=== PATIENT | female | born 1990 | race Caucasian/White ===

== ENCOUNTER → 2017-05-27 | Outpatient (CLI) | payer OTHER | END | disposition home or self-care (01) | LOC: C.LAB 18:24 | DX: Z02.83 Encounter for blood-alcohol and blood-drug test (principal) ==

== ENCOUNTER 2022-07-27 05:03 | Inpatient (IN) ==
[2022-07-27] MEDS ORDERED: OXYTOCIN 30 UNITS/500 ML BAG IV PRN ×3 (05:25→16:11)
[2022-07-27] MEDS ORDERED: LIDOCAINE 1% LOCAL 20 ML VIAL INFIL PRN (05:25)
[2022-07-27] MEDS: LACTATED RINGER'S 1,000 ML IV PRN ×3 (05:55→14:50)
[2022-07-27 05:57] LABS: Hematocrit (blood only) 35.3 % (34.1-44.9); Hemoglobin 12.2 g/dl (12.0-16.0); Mean Corpuscular Hemoglobin 30.9 pg (25.0-34.0); Mean Corpuscular Hgb Conc 34.6 g/dL (32.0-36.0); Mean Corpuscular Volume 89.4 fL (80.0-100.0); Mean Platelet Volume 12.9 fL (9.4-12.3); Platelet Count 181 K/uL (130-400); RDW Coefficient of Variation 13.2 % (11.5-14.5); RDW Standard Deviation 43.4 fL (36.4-46.3); Red Blood Count 3.95 M/uL (3.93-5.22); White Blood Count 11.17 K/ul (4.8-10.8)
[2022-07-27] MEDS ORDERED: ONDANSETRON INJ 2 MG/ML 2 ML VIAL ONE (06:06)
[2022-07-27] MEDS ORDERED: ePHEDrine sulfate 50 MG/ML AMP ONE (06:21)
[2022-07-27] MEDS ORDERED: BUPIVACAINE 0.25% 30 ML VIAL ONE ×2 (06:22→12:32)
[2022-07-27] MEDS ORDERED: fentaNYL citrate 100 MCG/2 ML VIAL ONE ×2 (06:22→12:32)
[2022-07-27] MEDS ORDERED: LIDOCAINE 2%/EPINEPHRINE 1:200,000 20 ML SDV ONE (06:22)
[2022-07-27] MEDS ORDERED: SODIUM CHLORIDE 0.9% INJ 10 ML VIAL ONE (06:22)
[2022-07-27] MEDS ORDERED: fentaNYL 2MCG/ML ROPIVACAINE 1.25MG/ML 100 ML BAG EPI ONE (06:23)
[2022-07-27] MEDS ORDERED: ePHEDrine sulfate 50 MG/ML AMP IV PRN (06:42)
[2022-07-27] MEDS ORDERED: diphenhydrAMINE 50 MG/ML VIAL IV PRN (06:42)
[2022-07-27] MEDS ORDERED: NALBUPHINE HCL INJ 10 MG/ML AMP IV PRN (06:42)
[2022-07-27] MEDS ORDERED: NALOXONE HCL 0.4 MG/1 ML VIAL/CARP IV PRN (06:42)
[2022-07-27] MEDS ORDERED: NALOXONE HCL 1 MG in SODIUM CHLORIDE 0.9% 1000ML 1,000 ML IV PRN (06:42)
--- NOTE | 2022-07-27 06:42 | Anesthesiology Consultation ---
Date of Service July 27, 2022 Assessment & Plan (1) Encounter for pre-operative examination: Chart Review Chart Review: Patient NOT seen in Pre Admission Testing and Acceptable Risk for Labor Epidural Consults Requested none History Height/Weight Height: 5 ft 4 in Weight: 83.007 kg Allergies Allergy/AdvReac Type Severity Reaction Status Date / Time No Known Allergies Allergy Verified 07/24/22 14:44 Medications Home Medications Medication Instructions Recorded Confirmed Last Taken prenat.vits,olga,frh-xhzo-joutb 1 tab PO DAILY 12/12/21 07/27/22 07/25/22 Active Medications Generic Name Dose Route Start Last Admin Trade Name Freq PRN Reason Stop Dose Admin Lactated Ringer's 1,000 mls @ 125 mls/hr 07/27/22 05:25 07/27/22 05:55 Lr IV 07/29/22 05:24 999 mls/hr .Q8H PRN Administration L&D Protocol Protocol Past Medical History Medical History 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 Social History Smoking Status: Never smoker Smoking cigarettes per day: 1 cig every 3-4 days Hx Alcohol Use: No Hx Substance Use: No Physical Exam Vital Signs Last Vital Signs Temp 99.0 F 07/27/22 05:33 Pulse 99 H 07/27/22 05:30 Resp 18 07/27/22 05:33 BP 128/82 07/27/22 05:30 Testing Laboratory Results 07/27/22 05:40
[2022-07-27] MEDS: fentaNYL 2MCG/ML ROPIVACAINE 1.25MG/ML 100 ML BAG EPI PRN ×2 (07:07→14:29)
--- NOTE | 2022-07-27 10:21 | Labor Progress Brief Note ---
Date of Service July 27, 2022 Subjective comfortable with epidural, took a nap Assessment & Plan (1) Active labor at term: (2) Need for rhogam due to Rh negative mother: Plan patient aware I am taking over care. some cx change. will cont with expectant management. pt aware if ctx space out would rec pit aug. rh neg, will need rhogam eval Admission and Anticipated Discharge Date Admission Date: July 27, 2022 Physical Exam Constitutional: WD/WN, vitals as above Genitourinary: Manual OB Exam: + cervical dilation 5 cm, + cervical effacement 80% and + station -2 OB Exam Monitor Tracing: + external FHT monitor used, + external uterine monitor used (q3), + category I, + category II (occas variables) and + normal FHT variability Results & Data ([facility]) Vital Signs (Past 12 Hours) Vital Signs Temp Pulse Resp BP Pulse Ox 07/27/22 05:33 99.0 F 18 07/27/22 10:17 66 07/27/22 10:17 126/71 07/27/22 10:12 96 07/27/22 10:12 63 07/27/22 10:07 96 07/27/22 10:07 64 07/27/22 10:02 96 07/27/22 10:02 66 07/27/22 10:01 72 07/27/22 10:01 97/58 L 07/27/22 09:57 96 07/27/22 09:57 67 07/27/22 09:52 96 07/27/22 09:52 71 07/27/22 09:47 96 07/27/22 09:47 63 07/27/22 09:46 65 07/27/22 09:46 108/59 L 07/27/22 09:42 98 07/27/22 09:42 72 07/27/22 09:37 95 07/27/22 09:37 72 07/27/22 09:32 95 07/27/22 09:32 74 07/27/22 09:31 68 07/27/22 09:31 106/61 07/27/22 09:27 96 07/27/22 09:27 66 07/27/22 09:22 96 07/27/22 09:22 70 07/27/22 09:17 96 09/24/22 09:17 74 07/27/22 09:17 103/60 07/27/22 09:12 95 07/27/22 09:12 72 07/27/22 09:07 96 07/27/22 09:07 68 07/27/22 09:02 96 07/27/22 09:02 68 07/27/22 09:02 65 07/27/22 09:02 100/59 L 07/27/22 08:57 95 07/27/22 08:57 79 07/27/22 08:52 94 07/27/22 08:52 73 07/27/22 08:47 96 07/27/22 08:47 68 07/27/22 08:47 66 07/27/22 08:47 119/66 07/27/22 08:42 98 07/27/22 08:42 67 07/27/22 08:40 94 07/27/22 08:40 74 07/27/22 08:37 99 07/27/22 08:37 75 07/27/22 08:32 98 07/27/22 08:32 74 07/27/22 08:31 74 07/27/22 08:31 113/67 07/27/22 08:27 98 07/27/22 08:27 75 07/27/22 08:22 98 07/27/22 08:22 72 07/27/22 08:17 98 07/27/22 08:17 70 07/27/22 08:15 18 07/27/22 08:15 98.4 F 18 07/27/22 08:15 75 07/27/22 08:15 118/74 07/27/22 08:12 98 07/27/22 08:12 79 07/27/22 08:07 97 07/27/22 08:07 75 07/27/22 08:05 82 07/27/22 08:05 108/65 07/27/22 08:02 96 07/27/22 08:02 70 07/27/22 07:57 97 07/27/22 07:57 69 07/27/22 07:55 81 07/27/22 07:55 106/70 07/27/22 07:52 97 07/27/22 07:52 71 07/27/22 07:47 98 07/27/22 07:47 73 07/27/22 07:45 72 07/27/22 07:45 105/63 07/27/22 07:42 97 07/27/22 07:42 74 07/27/22 07:37 96 07/27/22 07:37 80 07/27/22 07:36 76 07/27/22 07:36 114/61 07/27/22 07:32 96 07/27/22 07:32 87 07/27/22 07:27 97 07/27/22 07:27 82 07/27/22 07:25 82 07/27/22 07:25 116/73 07/27/22 07:22 96 07/27/22 07:22 90 07/27/22 07:17 98 07/27/22 07:17 76 07/27/22 07:14 81 07/27/22 07:14 116/67 07/27/22 07:12 97 07/27/22 07:12 81 07/27/22 07:12 68 07/27/22 07:12 118/65 07/27/22 07:10 86 07/27/22 07:10 118/58 L 07/27/22 07:07 98 07/27/22 07:07 76 07/27/22 07:08 79 07/27/22 07:08 120/71 07/27/22 07:06 76 07/27/22 07:06 122/74 07/27/22 07:04 76 07/27/22 07:04 124/76 07/27/22 07:02 98 07/27/22 07:02 77 07/27/22 06:57 99 07/27/22 06:57 87 07/27/22 06:52 100 07/27/22 06:52 108 H 07/27/22 05:30 99 H 128/82 Coding Level of Care Code None Diagnoses Active labor at term Need for rhogam due to Rh negative mother Z29.13
--- NOTE | 2022-07-27 12:19 | Labor Progress Brief Note ---
Date of Service July 27, 2022 Subjective feeling more pain with ctx. Assessment & Plan (1) Active labor at term: (2) Need for rhogam due to Rh negative mother: Plan good cx change. will try to reposition and if still with pain may need to ask anesth for help. fhts categ 1 Admission and Anticipated Discharge Date Admission Date: July 27, 2022 Physical Exam Constitutional: WD/WN, vitals as above Genitourinary: OB Exam Abdomen: + estimated weight (7-8#) Manual OB Exam: + cervical dilation 7 cm, + cervical effacement 100% and + station 0 OB Exam Monitor Tracing: + external FHT monitor used, + external uterine monitor used (q2-4 pit at 1), + category I and + normal FHT variability Results & Data ([facility]) Vital Signs (Past 12 Hours) Vital Signs Temp Pulse Resp BP Pulse Ox 07/27/22 05:33 99.0 F 18 07/27/22 12:12 97 07/27/22 12:12 78 07/27/22 12:07 98 07/27/22 12:07 78 07/27/22 12:02 97 07/27/22 12:02 76 07/27/22 12:01 67 07/27/22 12:01 118/76 07/27/22 11:57 97 07/27/22 11:57 78 07/27/22 11:52 98 07/27/22 11:52 71 07/27/22 11:47 98 07/27/22 11:47 72 07/27/22 11:47 135/84 07/27/22 11:42 97 07/27/22 11:42 71 07/27/22 11:37 97 07/27/22 11:37 71 07/27/22 11:32 99 07/27/22 11:32 74 07/27/22 11:31 65 07/27/22 11:31 105/66 07/27/22 11:27 98 07/27/22 11:27 79 07/27/22 11:22 96 07/27/22 11:22 71 07/27/22 11:17 98 07/27/22 11:17 70 07/27/22 11:16 81 07/27/22 11:16 98/58 L 07/27/22 11:12 96 07/27/22 11:12 68 07/27/22 11:07 97 07/27/22 11:07 71 07/27/22 11:03 68 07/27/22 11:03 108/63 07/27/22 11:02 97 07/27/22 11:02 71 07/27/22 10:57 98 07/27/22 10:57 72 07/27/22 10:52 98 07/27/22 10:52 71 07/27/22 10:47 99 07/27/22 10:47 74 07/27/22 10:47 110/66 07/27/22 10:42 99 07/27/22 10:42 66 07/27/22 10:37 98 07/27/22 10:37 74 07/27/22 10:33 68 07/27/22 10:33 128/94 07/27/22 10:32 96 07/27/22 10:32 74 07/27/22 10:27 99 07/27/22 10:27 77 07/27/22 10:24 20 07/27/22 10:24 98.4 F 20 07/27/22 10:22 97 07/27/22 10:22 73 07/27/22 10:17 99 07/27/22 10:17 68 07/27/22 10:17 66 07/27/22 10:17 126/71 07/27/22 10:12 96 07/27/22 10:12 63 07/27/22 10:07 96 07/27/22 10:07 64 07/27/22 10:02 96 07/27/22 10:02 66 07/27/22 10:01 72 07/27/22 10:01 97/58 L 07/27/22 09:57 96 07/27/22 09:57 67 07/27/22 09:52 96 07/27/22 09:52 71 07/27/22 09:47 96 07/27/22 09:47 63 07/27/22 09:46 65 07/27/22 09:46 108/59 L 07/27/22 09:42 98 07/27/22 09:42 72 07/27/22 09:37 95 07/27/22 09:37 72 07/27/22 09:32 95 07/27/22 09:32 74 07/27/22 09:31 68 07/27/22 09:31 106/61 07/27/22 09:27 96 07/27/22 09:27 66 07/27/22 09:22 96 07/27/22 09:22 70 07/27/22 09:17 96 07/27/22 09:17 74 07/27/22 09:17 103/60 07/27/22 09:12 95 07/27/22 09:12 72 07/27/22 09:07 96 07/27/22 09:07 68 07/27/22 09:02 96 07/27/22 09:02 68 07/27/22 09:02 65 07/27/22 09:02 100/59 L 07/27/22 08:57 95 07/27/22 08:57 79 07/27/22 08:52 94 07/27/22 08:52 73 07/27/22 08:47 96 07/27/22 08:47 68 07/27/22 08:47 66 07/27/22 08:47 119/66 07/27/22 08:42 98 07/27/22 08:42 67 07/27/22 08:40 94 07/27/22 08:40 74 07/27/22 08:37 99 07/27/22 08:37 75 07/27/22 08:32 98 07/27/22 08:32 74 07/27/22 08:31 74 07/27/22 08:31 113/67 07/27/22 08:27 98 07/27/22 08:27 75 07/27/22 08:22 98 07/27/22 08:22 72 07/27/22 08:17 98 07/27/22 08:17 70 07/27/22 08:15 18 07/27/22 08:15 98.4 F 18 07/27/22 08:15 75 07/27/22 08:15 118/74 07/27/22 08:12 98 07/27/22 08:12 79 07/27/22 08:07 97 07/27/22 08:07 75 07/27/22 08:05 82 07/27/22 08:05 108/65 07/27/22 08:02 96 07/27/22 08:02 70 07/27/22 07:57 97 07/27/22 07:57 69 07/27/22 07:55 81 07/27/22 07:55 106/70 07/27/22 07:52 97 07/27/22 07:52 71 07/27/22 07:47 98 07/27/22 07:47 73 07/27/22 07:45 72 07/27/22 07:45 105/63 07/27/22 07:42 97 07/27/22 07:42 74 07/27/22 07:37 96 07/27/22 07:37 80 07/27/22 07:36 76 07/27/22 07:36 114/61 07/27/22 07:32 96 07/27/22 07:32 87 07/27/22 07:27 97 07/27/22 07:27 82 07/27/22 07:25 82 07/27/22 07:25 116/73 07/27/22 07:22 96 07/27/22 07:22 90 07/27/22 07:17 98 07/27/22 07:17 76 07/27/22 07:14 81 07/27/22 07:14 116/67 07/27/22 07:12 97 07/27/22 07:12 81 07/27/22 07:12 68 07/27/22 07:12 118/65 07/27/22 07:10 86 07/27/22 07:10 118/58 L 07/27/22 07:07 98 07/27/22 07:07 76 07/27/22 07:08 79 07/27/22 07:08 120/71 07/27/22 07:06 76 07/27/22 07:06 122/74 07/27/22 07:04 76 07/27/22 07:04 124/76 07/27/22 07:02 98 07/27/22 07:02 77 07/27/22 06:57 99 07/27/22 06:57 87 07/27/22 06:52 100 07/27/22 06:52 108 H 07/27/22 05:30 99 H 128/82 Coding Level of Care Code None Diagnoses Active labor at term Need for rhogam due to Rh negative mother Z29.13
--- NOTE | 2022-07-27 15:55 | Delivery Summary ---
Vaginal Delivery Summary Date of Service July 27, 2022 Vaginal Delivery Summary and 2nd Degree LAC The patient dilated to complete and pushed to deliver a viable male Apgars 8 and 9 via over 2nd degree perineal laceration. Mouth and nose bulb suctioned at perineum. Loose nuchal x 1 reduced. Shoulders and body delivered with ease. was not vigorous and crying at despite stimulation. Cord clamped at approximately 10 seconds of life and to maternal abdomen where the cord was then doubly clamped and cut. Placenta delivered spontaneously and intact, three-vessel cord. Hemostasis achieved with dilute pitocin and uterine massage and drainage of the bladder for approximately 150 cc under sterile conditions. Laceration repaired in routine fashion with 3-0 vicryl. Cervix and sulci intact. EBL 300 cc. Mother and baby stable recovery. [facility] [place] Vaginal Delivery Charge Delivery Type Details: and 2nd Degree LAC
[2022-07-27] MEDS ORDERED: HYDROCORTISONE ACETATE 25 MG SUPP PR PRN (16:11)
[2022-07-27] MEDS ORDERED: oxyCODONE/ACETAMINOPHEN 5mg/325mg TAB PO PRN (16:11)
[2022-07-27] MEDS ORDERED: ACETAMINOPHEN 325 MG TAB PO PRN (16:11)
[2022-07-27] MEDS ORDERED: DIPHTHERIA/TETANUS/PERTUSSIS 0.5 ML SYR/VIAL IM ONE (16:11)
[2022-07-27] MEDS ORDERED: BENZOCAINE 20% AER SPR 82.5 GM CAN EXT PRN (16:11)
[2022-07-27] MEDS ORDERED: OXYTOCIN 20 UNITS in LACTATED RINGER'S 1,000 ML IV SCH (16:11)
--- NOTE | 2022-07-27 16:12 | Anesthesia Procedure Note ---
Date of Service July 27, 2022 Anesthesia Post Epidural Note Vital Signs Vital Signs: Temp Pulse Resp BP Pulse Ox 99.1 F 96 H 19 140/68 96 07/27/22 14:30 07/27/22 16:01 07/27/22 14:30 07/27/22 16:01 07/27/22 15:37 Notes Mental Status: alert / awake / arousable and participated in evaluation Nausea / Vomiting: adequately controlled Pain: adequately controlled Airway Patency, RR, SpO2: stable & adequate BP & HR: stable & adequate Hydration State: stable & adequate Neuraxial Anesthesia: was administered and sensory block is resolving Anesthetic Complications: no major complications apparent and Pt Satisfied with anesthetic care Epidural: Removed without complications and With tip intact
[2022-07-27] MEDS: IBUPROFEN 600 MG TAB PO PRN ×2 (17:28→21:55)
[2022-07-27] MEDS: DOCUSATE SODIUM 100 MG CAP PO SCH (21:55)
[2022-07-28] MEDS: DOCUSATE SODIUM 100 MG CAP PO SCH ×2 (08:55→20:52)
[2022-07-28] MEDS: PRENATAL VITAMIN 1 TAB PO SCH (08:55)
--- NOTE | 2022-07-28 10:21 | Obstetrical Progress Note ---
Date of Service July 28, 2022 Assessment & Plan (1) care following vaginal delivery: Plan stable. doing well. routine care. baby rh neg, no rhogam needed. breast/rubella immune. Day #:: 1 Subjective Ambulation: ambulating normally Voiding: no voiding problems Diet Tolerance:: regular diet Lochia:: Small Feeding Type:: breast feeding no pain Constitutional: + as per Subjective / HPI Physical Exam Constitutional WD/WN, vitals as above Respiratory normal respiratory effort, lungs clear to auscultation Cardiovascular Rate/Rhythm: regular rate and regular rhythm Gastrointestinal (Abdomen) Inspection/Auscultation: abdomen normal to inspection Percussion/Palpation: abdomen soft Fundus firm 2cm down Musculoskeletal nt calves no edema Neurologic grossly normal Psychiatric A+Ox3, euthymic affect Results & Data ([facility]) Vital Signs (Past 12 Hours) Vital Signs Temp Pulse Resp BP Pulse Ox O2 Del Method 07/28/22 02:15 98.4 F 80 16 111/70 98 Room Air 07/27/22 23:15 98.4 F 82 18 105/68 97 Room Air 07/27/22 22:54 98.2 F 82 18 107/67 95 Room Air
[2022-07-28] MEDS: IBUPROFEN 600 MG TAB PO PRN (19:31)
--- NOTE | 2022-07-29 05:03 | Obstetrical Progress Note ---
Date of Service July 29, 2022 Assessment & Plan (1) care following vaginal delivery: Plan - Overall, feeling well and eating well today - Infant feeding going well, will continue to pump and supplement - Urinating and stooling appropriately - Ambulating well around room - Pain controlled w/ Ibuprofen - Routine PP care progressing well - Anticipate discharge today - Encouraged follow up with OB at 6 weeks Admission and Anticipated Discharge Date Admission Date: July 27, 2022 Supervising Physician Co-Signing Physician Notes Resident Physician Supervision Note: I was present with Dr. Em during the history and exam. I discussed the case with the resident and agree with the findings and plan as documented in the note. Any exceptions or clarifications are listed here: pt doing well, eating, voiding, ambulating. bleeding decreased. supplemented formula but is breast feeding. abd soft ff 1 down,nt, nt calves, no edema ppd#2 dc home, instructions reviewed. f/u 6wk ppcheck. breast/ri/rh neg, baby neg, no rhogam indicated. Documented By: Jenny Beaulieu MD, FACOG Subjective Today 07/29/22: Patient is a 31 y/o female who is PPD #2 following delivery at 41w6d. Patient is feeling well overall and would like to go home today. - Ambulation - around room w/o difficulty - Voiding/Kulkarni - independently, no burning or pressure - Gas/Stool - passing gas, no bowel mvmt - Diet - regular diet, no nausea or emesis - Lochia - light amount - Feeding Type - , pumping, formula supplementation - Pain Level 1/10, controlled with PRN Ibuprofen Review of Systems - Denies fever, chills, sweats - Denies shortness of breath, difficulty breathing, chest pain, palpitations, chest pressure. - Denies breast pain. - Denies dysuria. - Denies headache or changes in vision. Physical Exam Physical Exam: General: Alert, oriented. No acute distress. Cardiac: RRR, normal S1/S2, no murmurs/rubs/gallops. Respiratory: Non-labored, CTAB, no wheezes/rales/rhonchi. Symmetric chest rise. Abdomen: Soft, nontender, nondistended. Bowel sounds present. Uterus: Uterine fundus firm, palpable 2 cm below umbilicus. Lower Extremities: No lower extremity edema or swelling. No deep calf pain. Eboni's negative bilaterally. Results & Data ([facility]) Vital Signs (Past 12 Hours) Vital Signs Temp Pulse Resp BP Pulse Ox O2 Del Method 07/28/22 23:45 36.8 C 79 17 123/82 97 Room Air 07/28/22 19:30 36.7 C 92 H 16 116/69 97 Room Air Resident Activity Tracking Resident Involvement: Resident Care Provided Care Provided: OB Delivery
[2022-07-29] MEDS: PRENATAL VITAMIN 1 TAB PO SCH (08:01)
[2022-07-29] MEDS: DOCUSATE SODIUM 100 MG CAP PO SCH (08:01)
== END 2022-07-29 14:05 | disposition home or self-care (01) | DRG 807 ==
LOC: OPB 05:03 → 4S1 05:09 → 4E2 18:50